=== PATIENT | female | born 1960 | race Caucasian/White ===

== ENCOUNTER 2024-08-17 13:35 | Emergency (ER) | payer MEDICARE, SELFPAY ==
[2024-08-17 14:03] VITALS: BP 160/58; PULSE 75; TEMP 36.8; O2SAT 98; BMI 28.3
--- NOTE | 2024-08-17 14:20 | CT_ITS ---
The [address] [address] Patient Name: RHONA CASTAÑEDA MRN: [id number] date: 1960 Sex: F Assigned Patient Location: ER Current Patient Location: ER Accession/Order Number: [id number] Exam Date: 08/17/2024 14:41 Report Date: 08/17/2024 15:24 At the request of: MARIELLE FERNANDEZ Procedure: CT head/brain wo con EXAM: CT head/brain wo con HISTORY: fall hematoma COMPARISON: None. TECHNIQUE: Axial noncontrast CT imaging of the head was performed with coronal and sagittal reformats This CT exam was performed using one or more of the following dose reduction techniques: Automated exposure control, adjustment of the MA and/or kV according to patient size, or use of iterative reconstruction technique. FINDINGS: Calvarium/skull base: Posterior left parietal scalp contusion. No evidence of acute fracture or destructive lesion. Paranasal sinuses: No air fluid levels. Brain: No acute intracranial hemorrhage. No acute large vascular territory infarct. No mass lesion or mass effect. No hydrocephalus. CT/CT head/brain wo con IMPRESSION: 1. No acute microsuture territory infarct or acute intracranial hemorrhage. 2. Posterior left parietal scalp scalp contusion. Electronically authenticated by: CARO RINALDI Date: 08/17/2024 15:24
[2024-08-17 15:29] VITALS: BP 128/65; PULSE 74; O2SAT 97
--- NOTE | 2024-08-17 15:34 | ED.GENADUL1 ---
Documented by User: Layne Daniels 08/17/24 15:37 HPI HPI - General Adult General Chief complaint: Fall Stated complaint: FALL Time Seen by Provider: 08/17/24 14:20 Mode of arrival: walk-in History of Present Illness HPI narrative: 64-year-old female presents to the emergency room chief complaint of a fall. Patient slipped and fell on the ice while getting groceries and boxes out of her car. witnessed it. Patient fell landing on her buttock and then posterior head. She has a small hematoma. Patient went inside of her home and had small amount of nausea. She was able to eat a muffin and did feel better. She had no loss of consciousness. She is not on blood thinners. She is alert and oriented x 3. wanted to bring her in to be evaluated due to the small hematoma in the posterior scalp. Neurological deficits she is alert and oriented x 3. Related Data Home Medications ?Medication ?Instructions ?Recorded ?Confirmed losartan 100 mg tablet 100 mg PO DAILY 08/17/24 08/17/24 Allergies Allergy/AdvReac Type Severity Reaction Status Date / Time acetaminophen (From Vicodin) AdvReac Severe Nausea Verified 08/17/24 14:03 hydrocodone (From Vicodin) AdvReac Severe Nausea Verified 08/17/24 14:03 Opioid HPI Opioid Management Most Recent Opioid Data: No Data to Display Review of Systems ROS Narrative All Systems are negative except as noted/marked.All systems reviewed and otherwise negative PFSH PFSH Social History Little interest or pleasure in doing things: not at all Feeling down, depressed, or hopeless: not at all Exam Narrative Exam Narrative: Nurses note and vital signs reviewed and patient is not hypoxic. General: The patient appears well and in no apparent distress. Patient is resting comfortably on cart. Skin: Warm, dry, no pallor noted. There is no rash noted. Head: posterior hematoma, small, no fluctuance Eye: Normal conjunctiva, no drainage, EOMI. PERRL Ears, Nose, Mouth, and Throat: oral mucosa is moist. Nares patent. Mouth without vesicles. Ear canals patent. Tm's without Erythema Cardiovascular: Regular Rate and Rhythm Respiratory: Patient is in no distress, no accessory muscle use, lungs are clear to auscultation, no wheezing, rales or rhonchi Back: non-tender, no CVA tenderness bilaterally to percussion. Musculoskeletal: The patient has no evidence of calf tenderness, no pitting edema, symmetrical pulses noted bilaterally Neurological: A&O x4, normal speech Psychiatric: Cooperative Constitutional Vital Signs, click to edit/add: Last Vital Signs Temp 98.2 F 08/17/24 14:03 Pulse 74 08/17/24 15:29 Resp 20 08/17/24 15:29 BP 128/65 08/17/24 15:29 Pulse Ox 97 08/17/24 15:29 O2 Del Method Room Air 08/17/24 15:29 Course Vital Signs Vital signs: Vital Signs Temperature 98.2 F 08/17/24 14:03 Pulse Rate 75 08/17/24 14:03 Respiratory Rate 18 08/17/24 14:03 Blood Pressure 160/58 H 08/17/24 14:03 Pulse Oximetry 98 08/17/24 14:03 Oxygen Delivery Method Room Air 08/17/24 14:03 Temperature 98.2 F 08/17/24 14:03 Pulse Rate 74 08/17/24 15:29 Respiratory Rate 20 08/17/24 15:29 Blood Pressure 128/65 08/17/24 15:29 Pulse Oximetry 97 08/17/24 15:29 Oxygen Delivery Method Room Air 08/17/24 15:29 Medical Decision Making MDM Narrative Medical decision making narrative: 64-year-old female presents to the emergency room chief complaint of a fall. Patient slipped and fell on the ice while getting groceries and boxes out of her car. witnessed it. Patient fell landing on her buttock and then posterior head. She has a small hematoma. Patient went inside of her home and had small amount of nausea. She was able to eat a muffin and did feel better. She had no loss of consciousness. She is not on blood thinners. She is alert and oriented x 3. wanted to bring her in to be evaluated due to the small hematoma in the posterior scalp. Neurological deficits she is alert and oriented x 3. Patient presented to the emergency room approximately an hour and a half after a fall. CT of the head read negative by radiology. Patient denied the need for any pain medication or nausea medication here in the emergency room. She will be discharged home with scalp hematoma and head injury instructions. Reasons to return were discussed. is at patient's bedside agrees with plan of care patient also agrees. Patient be discharged to home. Differential Diagnosis Differential Diagnosis: head injury, hematoma, fall Medical Records Medical records reviewed: Yes I reviewed the patient's medical records Lab Data Lab results reviewed: Yes I reviewed the patient's lab results Imaging Data CT scan - head: Attestation: I have reviewed the pertinent imaging results. Radiologist's impression: ITS Impressions Head CT 08/17/24 14:20 IMPRESSION: 1. No acute microsuture territory infarct or acute intracranial hemorrhage. 2. Posterior left parietal scalp scalp contusion. Electronically authenticated by: CARO RINALDI Date: 08/17/2024 15:24 Discharge Plan Discharge Chief Complaint: Fall Clinical Impression: Head injury, Hematoma of scalp Patient Disposition: Home, Self-Care Time of Disposition Decision: 15:31 Condition: Good Prescriptions / Home Meds: No Action losartan 100 mg tablet 100 mg PO DAILY Print Language: Singaporean Instructions: Head Injury (ED), Scalp Contusion in Adults (ED) Referrals: STEFANIE DELGADO [Primary Care Provider] - 1 week Discharge Date/Time: 08/17/24 15:48 Documented by User: Kirk Abarca MD 08/17/24 19:46 HPI HPI - General Adult General Chief complaint: Fall Stated complaint: FALL Time Seen by Provider: 08/17/24 14:20 Related Data Home Medications ?Medication ?Instructions ?Recorded ?Confirmed losartan 100 mg tablet 100 mg PO DAILY 08/17/24 08/17/24 Allergies Allergy/AdvReac Type Severity Reaction Status Date / Time acetaminophen (From Vicodin) AdvReac Severe Nausea Verified 08/17/24 14:03 hydrocodone (From Vicodin) AdvReac Severe Nausea Verified 08/17/24 14:03 Opioid HPI Opioid Management Most Recent Opioid Data: No Data to Display PFSH PFSH Social History Little interest or pleasure in doing things: not at all Feeling down, depressed, or hopeless: not at all Exam Constitutional Vital Signs, click to edit/add: Last Vital Signs Temp 98.2 F 08/17/24 14:03 Pulse 74 08/17/24 15:29 Resp 20 08/17/24 15:29 BP 128/65 08/17/24 15:29 Pulse Ox 97 08/17/24 15:29 O2 Del Method Room Air 08/17/24 15:29 Course Vital Signs Vital signs: Vital Signs Temperature 98.2 F 08/17/24 14:03 Pulse Rate 75 08/17/24 14:03 Respiratory Rate 18 08/17/24 14:03 Blood Pressure 160/58 H 08/17/24 14:03 Pulse Oximetry 98 08/17/24 14:03 Oxygen Delivery Method Room Air 08/17/24 14:03 Temperature 98.2 F 08/17/24 14:03 Pulse Rate 74 08/17/24 15:29 Respiratory Rate 20 08/17/24 15:29 Blood Pressure 128/65 08/17/24 15:29 Pulse Oximetry 97 08/17/24 15:29 Oxygen Delivery Method Room Air 08/17/24 15:29 Medical Decision Making MDM Narrative Medical decision making narrative: 64-year-old female presents to the emergency room chief complaint of a fall. Patient slipped and fell on the ice while getting groceries and boxes out of her car. witnessed it. Patient fell landing on her buttock and then posterior head. She has a small hematoma. Patient went inside of her home and had small amount of nausea. She was able to eat a muffin and did feel better. She had no loss of consciousness. She is not on blood thinners. She is alert and oriented x 3. wanted to bring her in to be evaluated due to the small hematoma in the posterior scalp. Neurological deficits she is alert and oriented x 3. Patient presented to the emergency room approximately an hour and a half after a fall. CT of the head read negative by radiology. Patient denied the need for any pain medication or nausea medication here in the emergency room. She will be discharged home with scalp hematoma and head injury instructions. Reasons to return were discussed. is at patient's bedside agrees with plan of care patient also agrees. Patient be discharged to home. I, Dr Abarca, have reviewed the above progress note and course of action in the ER; agree with the above. I have personally seen and evaluated this patient, gone over history and physical, and discussed disposition and treatment plan with the patient. Imaging Data CT scan - head: Radiologist's impression: ITS Impressions Head CT 08/17/24 14:20
== END 2024-08-17 15:48 | disposition home or self-care (01) ==
PROVIDERS: Emergency Provider Emergency Medicine; PCP Family Medicine
DX: S00.03XA Contusion of scalp, initial encounter (principal); W00.0XXA Fall on same level due to ice and snow, initial encounter
CPT/HCPCS: 70450; 99284